=== PATIENT | female | born 1975 | race Caucasian/White ===

== ENCOUNTER → 2025-01-12 12:42 | Outpatient (REF) | payer OTHER, SELFPAY | LOC: WDC 12:42 | PROVIDERS: ATTENDING PHYSICIAN Nurse Practitioner | DX: Z12.31 Encounter for screening mammogram for malignant neoplasm of breast (principal) | CPT/HCPCS: 77063; 77067 ==

== ENCOUNTER → 2025-01-23 09:22 | Outpatient (REF) | payer OTHER, SELFPAY | LOC: WDC 09:22 | PROVIDERS: ATTENDING PHYSICIAN Nurse Practitioner | DX: R92.8 Other abnormal and inconclusive findings on diagnostic imaging of breast (principal) | CPT/HCPCS: 76642 ==